=== PATIENT | female | born 1955 | race Caucasian/White ===

== ENCOUNTER 2018-08-08 12:17 | Day surgery (SDC) | payer OTHER ==
[2018-08-08] VITALS (17 sets, daily range): BP systolic 83–131; BP diastolic 48–84; PULSE 64–73; RESP 12–18; Ht 149.9 cm; Wt 63.7 kg
[~2018-08-08] VITALS: Ht 149.9 cm; Wt 63.7 kg
[~2018-08-08 12:17] MED LIST: ASPI-817 PO; BENICAR PO
[2018-08-08] MEDS ORDERED: BUPIVACAINE 0.5% (SDV) 30 ML INJ ONE (13:01)
[2018-08-08] MEDS ORDERED: LIDOCAINE 1% (MPF) 30 ML INJ ONE (13:02)
[2018-08-08] MEDS ORDERED: LACTATED RINGER'S 1,000 ML IV SCH (13:30)
--- NOTE | 2018-08-08 13:38 | HPN ---
Date/Time of Note Date/Time of Note DATE: 08/08/18 TIME: 13:38 Interval H&P Admission Note Pt. seen H&P reviewed: No system changes MARY LEWIS DPM Aug 08, 2018 13:38
--- NOTE | 2018-08-08 13:48 | PREAC ---
Date/Time of Note Date/Time of Note DATE: 08/08/18 TIME: 13:46 Anesthesia Eval and Record Evaluation Time Pre-Procedure Interview DATE: 08/08/18 TIME: 13:46 Age 63 Sex female NPO: 8 hrs Preoperative diagnosis Deformed 2nd and 3rd metatarsophalangeal joint left foot Planned procedure Partial ostectomy 2nd and 3rd metatarsal phalangeal joint left foot Past Medical History Past Medical History: Includes Cardio: HTN Surgery & Anesthesia Issues No known issue Meds Anticoagulation: No Beta Negra within 24 hr: No Reason Beta Negra not given: Pt. not on B-Negra Reported Medications Olmesartan-Hydrochlorothiazide (Benicar HCT) 20-12.5 Mg Tablet, 1 TAB PO DAILY, #30 TAB 08/08/18 Current Medications Lactated Ringer's 1,000 ml @ 25 mls/hr Q24H IV ; Start 08/08/18 at 13:30 Meds reviewed: Yes Allergies Coded Allergies: No Known Allergy (Unverified , 08/08/18) Allergies Reviewed: Yes Labs/Studies Labs Reviewed: Reviewed by anesthesiologist test: N/A Pre-procedure Exam Last vitals Vital Signs Date Temp Pulse Resp B/P (MAP) Pulse Ox O2 O2 Flow FiO2 Time Delivery Rate 08/08/18 98.1 67 16 131/84 96 Room Air 13:14 (100) Airway: Adequate mouth opening Mallampati: Mallampati I Teeth: Normal Lung: Normal Heart: Normal ASA Physical Status ASA physical status: 2 Emergency: None Planned Anesthetic General/MAC: LMA Planned Pain Management Parenteral pain med Pre-operative Attestations Prior to commencing anesthesia and surgery, the patient was re-evaluated, there was verification of: *The patient's identity *The results of appropriate recent lab work and preoperative vital signs *The above evaluation not changing prior to induction *Anesthetic plan, risk benefits, alternative and complications discussed with patient/family; questions answered; patient/family understands, accepts and wishes to proceed. KENDELL CAREY MD Aug 08, 2018 13:48
[2018-08-08] MEDS ORDERED: SEVOFLURANE 15 MIN ONE (14:00)
[2018-08-08] MEDS ORDERED: METOCLOPRAMIDE 10 MG INJ ONE (14:03)
[2018-08-08] MEDS ORDERED: LIDOCAINE 2% (SDV) 5 ML INJ ONE (14:03)
[2018-08-08] MEDS ORDERED: ONDANSETRON 4 MG INJ ONE (14:03)
[2018-08-08] MEDS ORDERED: PROPOFOL 20 ML ONE (14:03)
[2018-08-08] MEDS ORDERED: MEPERIDINE 100 MG INJ ONE (14:03)
[2018-08-08] MEDS ORDERED: CEFAZOLIN 1 GM INJ ONE (14:24)
[2018-08-08] MEDS ORDERED: ATROPINE 1 MG/10 ML SYRINGE ONE (14:24)
[2018-08-08] MEDS ORDERED: EPHEDrine 25 MG/5 ML SYG ONE (14:24)
[2018-08-08] MEDS ORDERED: POVIDONE IODINE 10% 28.4 GM OINT ONE (14:41)
--- NOTE | 2018-08-08 14:56 | SIPON ---
Date/Time of Note Date/Time of Note DATE: 08/08/18 TIME: 14:53 Operative Report Preoperative Diagnosis Preop deformed second and third metatarsal phalangeal joints left foot Postoperative Diagnosis .Postop diagnosis is just deformed second metatarsal phalangeal joint Operation/Procedure Performed Surgery is a partial ostectomy second metatarsal head left foot Surgeon see signature line kitchen assistant dietitian assistant none Anesthesia: general Estimated blood loss: minimal Transfusion Required none Specimen Specimen bone Grafts/Implants none Complications none MARY LEWIS DPM Aug 08, 2018 14:56
[2018-08-08] MEDS ORDERED: EPHEDrine 25 MG/5 ML SYG IV PRN (15:30)
[2018-08-08] MEDS ORDERED: MEPERIDINE 25 MG INJ IV PRN (15:30)
[2018-08-08] MEDS ORDERED: FENTAnyl 50 MCG/ML VIAL IV PRN ×3 (15:30)
[2018-08-08] MEDS ORDERED: LABETALOL HCL 20MG INJ IV PRN (15:30)
[2018-08-08] MEDS ORDERED: DIPHENHYDRAMINE 50 MG INJ IV PRN (15:30)
[2018-08-08] MEDS ORDERED: METOCLOPRAMIDE 10 MG INJ IV PRN (15:30)
[2018-08-08] MEDS ORDERED: ONDANSETRON 4 MG INJ IV PRN (15:30)
[2018-08-08] MEDS ORDERED: hydrALAzine 20 MG INJ IV PRN (15:30)
[2018-08-08] MEDS ORDERED: OXYCODONE/ACETAMINOPHEN (5/325) TAB PO PRN ×2 (15:30)
[2018-08-08] MEDS ORDERED: MIDAZOLAM 1 MG/ML 2 ML INJ IV PRN (15:30)
--- NOTE | 2018-08-08 16:22 | PAC ---
Date/Time of Note Date/Time of Note DATE: 08/08/18 TIME: 16:21 Post-Anesthesia Notes Post-Anesthesia Note Last documented vital signs Vital Signs Date Temp Pulse Resp B/P (MAP) Pulse Ox O2 O2 Flow FiO2 Time Delivery Rate 08/08/18 98.1 67 16 131/84 96 Room Air 13:14 (100) Activity: WNL Respiratory function: WNL Cardiovascular function: WNL Mental status: Baseline Pain reasonably controlled: Yes Hydration appropriate: Yes Nausea/Vomiting absent: Yes Comments BT: 98.3 KENDELL CAREY MD Aug 08, 2018 16:22
--- NOTE | 2018-08-08 17:09 | OPR ---
DATE OF OPERATION: 08/08/2018 PREOPERATIVE DIAGNOSIS: Deformed 2nd and 3rd metatarsophalangeal joint, left foot. POSTOPERATIVE DIAGNOSIS: Deformed 2nd metatarsophalangeal joint, left foot. PROCEDURE: Partial ostectomy of the 2nd metatarsal on the left foot. SURGEON: Mary Fernández DPM DESCRIPTION OF PROCEDURE: The patient was brought to the surgical suite, placed in a supine position . The patient had a sterile prep and drape. Findings are consistent with the pre and postoperative diagnosis. She had the tourniquet at mid-thigh. The first incision was a dorsal longitudinal incisi on over the 2nd metatarsophalangeal joint. Using sharp and blunt dissection, the incision was fan d deep. The extensor digitorum longus was moved laterally and the head of the 2nd metatarsal was radha ed and resected at its surgical neck. This allowed the toe to drop down and come into place and the 3rd metatarsophalangeal was not being pushed anymore and so it was now in normal place, so it was dec ided not to do anything to the 3rd metatarsal. The subcutaneous tissue was cleansed and a 3-0 Vicryl was used to coaptate the subcutaneous tissue and the skin was coaptated using 5-0 nylon. The area w as injected with 0.5% Marcaine to prolong anesthesia and a dressing of 1/2-inch Steri-Strips, Betadin e ointment, 4 x 4's impregnated with Betadine solution and Sparkle with an outer layer of Coban made in to a semi-compressive dressing. The patient tolerated the surgery well and was returned to recovery room in satisfactory condition. Dictated By: MARY RENEE/SHABBIR Conf#: [id number] DID#: [id number]
== END 2018-08-08 16:46 | disposition home or self-care (01) ==
LOC: MERGE 12:17 → SDS 12:17
PROVIDERS: ATTEND Podiatrist
DX: M20.5X2 Other deformities of toe(s) (acquired), left foot (principal); I10 Essential (primary) hypertension; E66.3 Overweight; Z68.28 Body mass index [BMI] 28.0-28.9, adult
CPT/HCPCS: 28122; 88304; 88311; J0461; J0690; J2175; J2405; J2765